=== PATIENT | female | born 1990 | race Caucasian/White ===

== ENCOUNTER 2021-06-25 21:34 | Emergency (ER) | payer OTHER ==
[2021-06-25 22:03] LABS: HEMOGLOBIN 12.8 gm/dl (12.3-15.3); RED BLOOD COUNT 4.55 M/UL (4.00-5.10)
[2021-06-25 22:27] LABS: BUN/CREATININE RATIO 19 (0-10)
== END 2021-06-26 00:20 | disposition home or self-care (01) ==
LOC: ER1 21:34
PROVIDERS: Physician Assistant
DX: E11.65 Type 2 diabetes mellitus with hyperglycemia (principal); Z79.4 Long term (current) use of insulin
CPT/HCPCS: 80053; 81001; 82803; 82962; 84703; 85025; 87086; 99285